=== PATIENT | male | born 1955 ===

== ENCOUNTER 2017-08-11 14:09 | Emergency (ER) | payer OTHER ==
[2017-08-11 14:53] VITALS: RESP 18; O2SAT 97
--- NOTE | 2017-08-11 16:08 | C.PDOC ---
History Of Present Illness 62 year old male who is an employee of [employer] presents to the ED for evaluation of right hand injury sustained today at work. Patient reports his right thumb was jammed between two heavy plates. Patient reports he developed pain in the base of his right thumb mostly localized and worsened with movement. Otherwise, Patient denies weakness, numbness, sensory deficits of extremities, no gross deformities. Time Seen by Provider: 08/11/17 15:30 Chief Complaint (Nursing): Upper Extremity Problem/Injury History Per: Patient History/Exam Limitations: no limitations Onset/Duration Of Symptoms: Hrs Current Symptoms Are (Timing): Still Present Quality: "Pain" Exacerbating Factor(s): Movement Recent travel outside of the [place]: No Additional History Per: Patient Past Medical History Reviewed: Historical Data, Nursing Documentation, Vital Signs Vital Signs: Last Vital Signs Temp 98.6 F 08/11/17 16:46 Pulse 73 08/11/17 16:46 Resp 18 08/11/17 16:46 BP 128/82 08/11/17 16:46 Pulse Ox 97 08/11/17 16:46 - Medical History PMH: No Chronic Diseases Surgical History: No Surg Hx Family History: States: Unknown Family Hx - Social History Hx Alcohol Use: No Hx Substance Use: No Review Of Systems Constitutional: Negative for: Fever, Chills Cardiovascular: Negative for: Chest Pain, Palpitations Respiratory: Negative for: Cough, Shortness of Breath Gastrointestinal: Negative for: Nausea, Vomiting, Abdominal Pain Musculoskeletal: Positive for: Hand Pain Skin: Negative for: Rash Neurological: Negative for: Weakness, Numbness, Headache Physical Exam - Physical Exam Appears: Non-toxic, No Acute Distress Skin: Normal Color, Warm, Dry, Ecchymosis (right 1st MCPJ) Head: Atraumatic, Normacephalic Extremity: Normal ROM, Tenderness (mild, right 1st MCPJ), Capillary Refill (< 2 seconds), No Deformity, No Swelling Pulses: Left Radial: Normal, Right Radial: Normal Neurological/Psych: Oriented x3, Normal Speech, Normal Cognition, Normal Motor, Normal Sensation, Normal Reflexes Gait: Steady ED Course And Treatment O2 Sat by Pulse Oximetry: 97 (On RA) Pulse Ox Interpretation: Normal - Other Rad Right hand X-Ray: Interpreted by Me, Viewed By Me Interpretation: (+)? distal 1st MCB compression fx Progress Note: Plan: -Motrin 600 mg PO. -Right Hand X-Ray. On re-eval, pt is afebrile, hemodynamicalys tabe. Non-toxic. Right hand: exam c/w thumb contusion. No deformity, no neurovascular deficits. Imaging review. Thumb spica applied to Right thumb. Pt advised and ref. to f/u with hand in 2-3 days for re-eavl. return if any new changes. Disposition Counseled Patient/Family Regarding: Studies Performed, Diagnosis, Need For Followup, Rx Given - Disposition Referrals: Vlad Hernandez MD [Staff Provider] - Disposition: HOME/ ROUTINE Disposition Time: 16:17 Condition: STABLE Additional Instructions: SPLINT FOR 1 WEEK TAKE PAIN MEDICATION NEED FOLLOW UP WITH HAND SPECIALIST IN 2-3 DAYS FOR RE-EVALUATION. 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 - Scribe Statement The provider has reviewed the documentation as recorded by the Scribe Rafat Huynh All medical record entries made by the Scribe were at my direction and personally dictated by me. I have reviewed the chart and agree that the record accurately reflects my personal performance of the history, physical exam, medical decision making, and the department course for this patient. I have also personally directed, reviewed, and agree with the discharge instructions and disposition.
[2017-08-11 16:47] VITALS: BP 128/82; PULSE 73; TEMP 98.6
--- NOTE | 2017-08-11 17:17 | RAD ---
Right hand three views History: Injury. Comparison: None available. Findings: Severe degenerative changes with joint space narrowing noted at the 5th DIP joint space. Milder narrowing at the 3rd and 4th DIP joint spaces. Multiple probable accessory ossicles adjacent to the 1st metacarpal head. Impression: Severe degenerative changes with joint space narrowing noted at the 5th DIP joint space.
== END 2017-08-11 16:47 | disposition home or self-care (01) ==
LOC: C.ER 14:09
DX: S62.501A Fracture of unspecified phalanx of right thumb, initial encounter for closed fracture (principal); W23.0XXA Caught, crushed, jammed, or pinched between moving objects, initial encounter; Y92.239 Unspecified place in hospital as the place of occurrence of the external cause; Y99.0 Civilian activity done for income or pay